=== PATIENT | female | born 1975 | race Two or more races ===

== ENCOUNTER 2022-10-20 00:06 | Emergency (ER) | payer MEDICAID ==
[~2022-10-20] VITALS: Ht 162.6 cm; Wt 78.5 kg
[2022-10-20] MEDS ORDERED: KETOROLAC TROMETHAMINE INJ 60 MG/2 ML VIAL IM ONE ×2 (00:30→00:40)
--- NOTE | 2022-10-20 00:45 | NUR ---
TO ER BED 2. BIBS C/O BACK PAIN S/P SLIP AND FALL WHILE CLEANING. PAIN RADIATES FROM LOWER BACK TO UPPER BACK. DENIES HEAD TRAUMA. PT IS ALERT AND ORIENTED . RR EVEN AND NONLABORED. CONNECTED TO MONITOR
--- NOTE | 2022-10-20 01:10 | NUR ---
PT RETURNED TO ER BED [address] FROM CT
[2022-10-20] MEDS ORDERED: NABU-141 PO (03:57)
--- NOTE | 2022-10-20 04:21 | NUR ---
Patient discharged to home in stable condition. Written and verbal after care instructions given. Patient verbalizes understanding of instruction.
[2022-10-20 04:22] VITALS: BP 146/79
== END 2022-10-20 04:22 | disposition home or self-care (01) ==
LOC: ER 00:10
DX: M54.50 Low back pain, unspecified (principal); E11.9 Type 2 diabetes mellitus without complications; W01.0XXA Fall on same level from slipping, tripping and stumbling without subsequent striking against object, initial encounter; Y93.89 Activity, other specified; Y92.89 Other specified places as the place of occurrence of the external cause; Y99.8 Other external cause status
CPT/HCPCS: 99285; 72125; 96372; 72131; J1885